=== PATIENT | male | born 1985 | race Caucasian/White ===

== ENCOUNTER 2020-08-20 01:53 | Emergency (ER) | payer OTHER ==
[2020-08-20] MEDS ORDERED: TETANUS, DIPHTHERIA TOX,ADULT (TDVAX) 0.5 ML VIAL IM ONE (02:01)
[2020-08-20 02:28] LABS: #Basophils 0.1 thou/uL (0.0-0.2); #Eosinphils 0.1 thou/uL (0.0-0.7); #Lymphocytes 2.3 thou/uL (1.20-3.40); #Monocytes 0.7 thou/uL (0.11-0.59); #Neutrophils 6.5 thou/uL (1.40-6.50); %Basophils 0.9 % (0.0-1.0); %Eosinophils 1.5 % (0.0-10.0); %Lymphocytes 23.4 % (21.0-51.0); %Monocytes 7.1 % (0.0-10.0); %Neutrophils 67.2 % (42.0-75.0); Hemoglobin 15.3 g/dL (14.0-18.0); Mean Corpuscular HGB CONC 33.4 g/dL (32.0-36.0); Mean Corpuscular Hemoglobin 30.2 pg (27.0-31.0); Mean Corpuscular Volume 90.5 fL (78.0-98.0); Mean Platelet Volume 7.5 fL (7.4-10.4); Platelet Count 287 thou/uL (130-400); RBC Distribution Width 12.6 % (11.5-14.5); Red Blood Cell (RBC) Count 5.05 mill/uL (4.70-6.10); White Blood Cell (WBC) Count 9.7 thou/uL (4.8-10.8)
[2020-08-20] MEDS ORDERED: CEFAZOLIN 1 GM VIAL ONE (02:28)
[2020-08-20] MEDS ORDERED: Sodium Chloride 0.9% 100 ML ONE (02:30)
[2020-08-20 02:33] LABS: Prothrombin Time 13.3 sec (12.0-14.7)
[2020-08-20] MEDS ORDERED: Morphine 4 MG/ML VIAL ONE (02:33)
[2020-08-20 02:38] LABS: Albumin 4.6 g/dL (3.5-5.0); Alkaline Phosphatase 119 U/L (40-110); Anion Gap 16 mmol/L (10-20); BUN (Urea Nitrogen) 9 mg/dL (8.9-20.6); Bilirubin, Total 0.8 mg/dL (0.2-1.2); Calc. Creatinine Clearance 0 mL/min (70-130); Calcium 9.2 mg/dL (7.8-10.44); Carbon Dioxide 23 mmol/L (22-29); Chloride 104 mmol/L (98-107); Globulin 3.6 g/dL (2.4-3.5); Glucose 113 mg/dL (70-105); Potassium 3.2 mmol/L (3.5-5.1); Protein, Total 8.2 g/dL (6.0-8.3); Sodium 140 mmol/L (136-145)
[2020-08-20 02:39] LABS: ALT (SGPT) 28 U/L (8-55); AST (SGOT) 19 U/L (5-34); CK (CPK) 154 U/L (30-200)
[2020-08-20 02:54] LABS: Bilirubin Small (Negative); Blood, Urine Negative (Negative); Clarity Clear (Clear); Glucose, Urine (Dipstick) Negative (Negative); Ketone, Urine Trace mg/dL (Negative); Leukocyte Negative (Negative); Nitrite Negative (Negative); Protein, Urine (Dipstick) Negative (Neg-Trace); Urobilinogen 0.2 mg/dL (Less than 2); pH, Urine 5.5 (5.0-9.0)
[2020-08-20 03:02] LABS: Specific Gravity, Urine 1.027 (1.002-1.036)
[2020-08-20 03:37] LABS: SARS-CoV-2 NAA Rapid Test Not Detected (NotDetected)
[2020-08-20] MEDS ORDERED: Boostrix 0.5 ML (Tdap) VIAL ONE (12:58)
== END 2020-08-20 02:46 | disposition short-term general hospital (02) ==
LOC: BURERS 01:53
DX: S31.31XA Laceration without foreign body of scrotum and testes, initial encounter (principal); F17.200 Nicotine dependence, unspecified, uncomplicated; Z20.822 Contact with and (suspected) exposure to COVID-19; Z23 Encounter for immunization; W22.8XXA Striking against or struck by other objects, initial encounter; Y93.39 Activity, other involving climbing, rappelling and jumping off; Y92.59 Other trade areas as the place of occurrence of the external cause; Y99.0 Civilian activity done for income or pay
CPT/HCPCS: 80053; 81003; 82550; 85025; 85610; 90471; 90714; 90715; 96365; 96375; J0690; J2270; J3490; U0002